=== PATIENT | male | born 1975 | race African-American/Black ===

== ENCOUNTER 2024-08-13 17:01 | Emergency (ER) | payer SELFPAY ==
[2024-08-13] MEDS: Acetaminophen 500 MG Tab PO ONE (18:27)
[2024-08-13] MEDS: Ibuprofen 600 MG Tab PO ONE (18:27)
[2024-08-13 19:49] VITALS: BP 122/72; PULSE 58
== END 2024-08-13 19:48 | disposition home or self-care (01) ==
LOC: MW.ED 17:01
DX: U07.1 COVID-19 (principal); Z75.8 Other problems related to medical facilities and other health care
CPT/HCPCS: 71046; 87428; 99284; A9270